=== PATIENT | male | born 1965 | race Caucasian/White ===

== ENCOUNTER 2020-02-01 07:28 | Day surgery (SDC) | payer BC ==
[~2020-02-01 07:28] MED LIST: Lactated Ringers 1,000 ML IV SCH; Sodium Chloride 0.9% 10 ML SDV IV PRN; Sodium Chloride 0.9% 10 ML Syringe FLUSH PRN; Sodium Chloride 0.9% 2.5 ML Syringe FLUSH PRN
[2020-02-01] MEDS ORDERED: Ondansetron 4 MG/2 ML SDV ONE (08:32)
[2020-02-01] MEDS ORDERED: Dexamethasone 4 MG/ML 5 ML MDV ONE (08:32)
[2020-02-01] MEDS ORDERED: Rocuronium Bromide 50 MG/5 ML Syringe ONE (08:32)
[2020-02-01] MEDS ORDERED: Glycopyrrolate 0.2 MG/ML SDV ONE (08:32)
[2020-02-01] MEDS ORDERED: Midazolam 1 MG/ML 2 ML SDV ONE (08:33)
[2020-02-01] MEDS ORDERED: fentaNYL 250 MCG/5 ML SDV ONE (08:33)
[2020-02-01] MEDS ORDERED: Propofol 200 MG/20 ML SDV ONE ×3 (08:33→10:15)
[2020-02-01] MEDS ORDERED: fentaNYL 100 MCG/2 ML SDV IVPUSH PRN (08:44)
--- NOTE | 2020-02-01 08:52 | PCM.PREANE ---
Preanesthetic Assessment - Anesthesia/Transfusion/Family Hx Anesthesia History: Prior Anesthesia Reaction Type of Anesthesia Reaction: Excessive Nausea/Vomiting Other Type of Anesthesia Reaction Comment: "I get crabby waking up after surgery" Transfusion History: No Prior Transfusion(s) - Review of Systems General: No Symptoms Pulmonary: No Symptoms, Sputum Gastrointestinal: No Symptoms Neurological: No Symptoms Other: Reports: None - Physical Assessment NPO Status Date: 01/31/20 NPO Status Time: 22:30 Vital Signs: Last Vital Signs Temp 97.7 F 02/01/20 07:50 Pulse 58 L 02/01/20 07:50 Resp 15 02/01/20 07:50 BP 146/91 H 02/01/20 07:50 Pulse Ox 98 02/01/20 07:50 Height: 5 ft 11 in Weight: 80.739 kg ASA Class: 2 Mental Status: Alert & Oriented x3 Airway Class: Mallampati = 2 Dentition: Reports: Normal Dentition ROM/Head Extension: Full Lungs: Clear to Auscultation, Normal Respiratory Effort Cardiovascular: Regular Rate, Regular Rhythm - Lab Values: Laboratory Last Values SARS Virus RNA (PCR) NEGATIVE (NEGATIVE) 02/01/20 07:35 - Allergies Allergies/Adverse Reactions: Allergies Allergy/AdvReac Type Severity Reaction Status Date / Time No Known Allergies Allergy Verified 01/19/20 09:48 - Blood Blood Available: No - Anesthesia Plan Pre-Op Medication Ordered: None - Acknowledgements Anesthesia Type Planned: General Anesthesia Pt an Appropriate Candidate for the Planned Anesthesia: Yes Alternatives and Risks of Anesthesia Discussed w Pt/Guardian: Yes Pt/Guardian Understands and Agrees with Anesthesia Plan: Yes Additional Comments: PMH: STEBBINS right ear, remote hx of asthma-inactive now, pt requests minimal opiooids during surgery to minimize PONV, will use both toradol and iv acetamenophen PLAN: ga/lma PreAnesthesia Questionnaire HEENT History: Reports: Other (See Below) Other HEENT History: wears glasses/contacts, giselle hearig aids Cardiovascular History: Reports: None Respiratory History: Reports: Asthma, Other (See Below) Other Respiratory History: "my thinks I have sleep apnea, but I have never been tested" Gastrointestinal History: Reports: None Genitourinary History: Reports: Renal Calculus Musculoskeletal History: Reports: Fracture Other Musculoskeletal History: hx fx hand, arm, ankle and fingers, rt shoulder pain "had injection 3 weeks ago" Neurological History: Reports: None Psychiatric History: Reports: None Endocrine/Metabolic History: Reports: None Hematologic History: Reports: None Immunologic History: Reports: None Oncologic (Cancer) History: Reports: None Dermatologic History: Reports: None - Past Surgical History Head Surgeries/Procedures: Reports: None HEENT Surgical History: Reports: Myringotomy w Tube(s), Other (See Below) Other HEENT Surgeries/Procedures: rt ear drum surgery, has implant Cardiovascular Surgical History: Reports: None Respiratory Surgical History: Reports: None GI Surgical History: Reports: None Endocrine Surgical History: Reports: None Neurological Surgical History: Reports: None Musculoskeletal Surgical History: Reports: Other (See Below) Other Musculoskeletal Surgeries/Procedures:: hx rt knee reconstruction Oncologic Surgical History: Reports: None Dermatological Surgical History: Reports: None - SUBSTANCE USE Tobacco Use Within Last Twelve Months: Smokeless Tobacco - HOME MEDS Home Medications: Home Meds Acetaminophen [Tylenol Extra Strength] 2 tab PO ASDIRECTED PRN 01/19/20 [History] Albuterol Sulfate [Albuterol Sulfate Hfa] 1 - 2 puff INH ASDIRECTED PRN 01/19/20 [History] Budesonide/Formoterol Fumarate [Symbicort 160-4.5 Mcg Inhaler] 1 puff INH BID 01/19/20 [History] Naproxen Sodium [Aleve] 2 tab PO ASDIRECTED PRN 01/19/20 [History] Tamsulosin HCl [Flomax] 1 tab PO ASDIRECTED 01/19/20 [History] - CURRENT (IN HOUSE) MEDS Current Meds: Current Medications Fentanyl (Sublimaze) 50 mcg IVPUSH Q5M PRN PRN Reason: Pain (severe 7-10) Stop: 02/02/20 08:45 Lactated Ringer's (Ringers, Lactated) 1,000 mls @ 100 mls/hr IV ASDIRECTED JEIMY Last Admin: 02/01/20 07:55 Dose: 100 mls/hr Documented by: Sodium Chloride (Saline Flush) 10 ml FLUSH ASDIRECTED PRN PRN Reason: Keep Vein Open Sodium Chloride (Saline Flush) 2.5 ml FLUSH ASDIRECTED PRN PRN Reason: Keep Vein Open Sodium Chloride (Normal Saline) 10 ml IV ASDIRECTED PRN PRN Reason: IV Use Discontinued Medications Dexamethasone (Dexamethasone) Confirm Administered Dose 20 mg .ROUTE .STK-MED ONE Stop: 02/01/20 08:33 Fentanyl (Sublimaze) Confirm Administered Dose 250 mcg .ROUTE .STK-MED ONE Stop: 02/01/20 08:34 Glycopyrrolate (Robinul) Confirm Administered Dose 0.4 mg .ROUTE .STK-MED ONE Stop: 02/01/20 08:33 Lactated Ringer's (Ringers, Lactated) 1,000 mls @ 100 mls/hr IV ASDIRECTED JEIMY Midazolam HCl (Versed 1 Mg/Ml) Confirm Administered Dose 2 mg .ROUTE .STK-MED ONE Stop: 02/01/20 08:34 Ondansetron HCl (Zofran) Confirm Administered Dose 4 mg .ROUTE .STK-MED ONE Stop: 02/01/20 08:33 Propofol (Diprivan 20 Ml) Confirm Administered Dose 200 mg .ROUTE .STK-MED ONE Stop: 02/01/20 08:34 Rocuronium [place] (Rocuronium [place]) Confirm Administered Dose 50 mg .ROUTE .STK-MED ONE Stop: 02/01/20 08:33 Sodium Chloride (Saline Flush) 10 ml FLUSH ASDIRECTED PRN PRN Reason: Keep Vein Open Sodium Chloride (Saline Flush) 2.5 ml FLUSH ASDIRECTED PRN PRN Reason: Keep Vein Open Sodium Chloride (Normal Saline) 10 ml IV ASDIRECTED PRN PRN Reason: IV Use
[2020-02-01] MEDS ORDERED: Ketorolac 30 MG/ML SDV ONE (10:43)
[2020-02-01] MEDS ORDERED: NAPROXEN SODIUM PO PRN (10:48)
[2020-02-01] MEDS ORDERED: ACETAMINOPHEN PO PRN (10:48)
[2020-02-01] MEDS ORDERED: TAMSULOSIN HCL PO SCH (11:00)
--- NOTE | 2020-02-01 11:19 | PCM.POSTAN ---
POST ANESTHESIA ASSESSMENT - MENTAL STATUS Mental Status: Alert, Oriented - VITAL SIGNS Vital Signs: Last Vital Signs Temp 97.3 F 02/01/20 10:39 Pulse 60 02/01/20 11:15 Resp 15 02/01/20 11:15 BP 130/83 02/01/20 11:15 Pulse Ox 97 02/01/20 11:15 - RESPIRATORY Respiratory Status: Respiratory Rate WNL, Airway Patent, O2 Saturation Stable - CARDIOVASCULAR CV Status: Pulse Rate WNL, Blood Pressure Stable - GASTROINTESTINAL GI Status: No Symptoms - POST OP HYDRATION Hydration Status: Adequate & Stable
--- NOTE | 2020-02-01 12:12 | PCM48HPAN ---
Post Anesthesia Note - EVALUATION WITHIN 48HRS OF ANESTHETIC Vital Signs in Normal Range: Yes Patient Participated in Evaluation: Yes Respiratory Function Stable: Yes Airway Patent: Yes Cardiovascular Function Stable: Yes Hydration Status Stable: Yes Pain Control Satisfactory: Yes Nausea and Vomiting Control Satisfactory: Yes Mental Status Recovered: Yes Vital Signs: Last Vital Signs Temp 96.8 F L 02/01/20 11:23 Pulse 52 L 02/01/20 11:53 Resp 14 02/01/20 11:53 BP 142/88 H 02/01/20 11:53 Pulse Ox 100 02/01/20 11:53
--- NOTE | 2020-02-01 12:58 | OR ---
SURGEON: Jef Gurrola M.D. DATE OF PROCEDURE: 02/01/2020 PREOPERATIVE DIAGNOSIS: Multiple small renal stones with the largest being 7 mm in the right upper pole. POSTOPERATIVE DIAGNOSIS: Multiple small renal stones with the largest being 7 mm in the right upper pole. OPERATION: Extracorporeal shock wave lithotripsy for the largest stone. The other ones were too small to be visualized through the fluoro. DESCRIPTION OF PROCEDURE: The patient was given general anesthesia. His position was adjusted so the stone could be identified and treated and eventually received a total of 1600 shocks at which time the shadow of the stone completely disappeared. With that done, we looked for the stone in the right lower pole, that could not be visualized. We looked in the left kidney, it had a similar stone, 2 to 3 mm, but that could not be visualized. With that done, the procedure was terminated. The patient was sent to recovery room in good condition. RINA / [id number] /[id number]
[2020-02-01] MEDS ORDERED: Non-Formulary Medication 1 Each (Budesonide/Formoterol Fumarate [Symbicort 160-4.5 Mcg Inh INH SCH (21:00)
== END 2020-02-01 12:38 | disposition home or self-care (01) ==
LOC: MW.SDS 07:28
PROVIDERS: ATTEND Urology
DX: N20.0 Calculus of kidney (principal); J45.909 Unspecified asthma, uncomplicated; Z11.59 Encounter for screening for other viral diseases; Z79.51 Long term (current) use of inhaled steroids; Z87.442 Personal history of urinary calculi
CPT/HCPCS: 50590; 87635; J1100; J1885; J2250; J2405; J2704; J3010; J3490; J7120; U0002